=== PATIENT | female | born 1985 | race Caucasian/White ===

== ENCOUNTER 2018-05-09 17:33 | Outpatient (CLI) | payer BC | END 2018-05-09 17:34 | disposition home or self-care (01) | LOC: C.RADH 17:33 | DX: R06.02 Shortness of breath (principal) ==

== ENCOUNTER 2018-05-13 09:01 | Day surgery (SDC) | payer BC ==
[2018-05-10 11:51] VITALS: BMI 26.1
[2018-05-13 09:58] VITALS: O2SAT 100
[2018-05-13] MEDS ORDERED: Lidocaine/Epinephrine 1% 1:100000 10 ML IJ ONE ×2 (11:51→13:45)
[2018-05-13] MEDS ORDERED: Bupivacaine 0.25% 20 ML INJ IJ ONE (11:51)
[2018-05-13] MEDS ORDERED: HEPARIN-NS 5,000 UNITS/500 ML 5,000 UNIT/500 ML BAG IV ONE (11:51)
[2018-05-13] MEDS ORDERED: Propofol 10 mg/ml Inj (20 ML) ONE ×2 (12:03→13:02)
[2018-05-13] MEDS ORDERED: Midazolam 2 MG/2 ML VIAL ONE ×2 (12:05→13:02)
[2018-05-13] MEDS ORDERED: ceFAZolin 1 gm in NS 1 GM/100 ML BAG IVPB ONE ×2 (12:45→13:29)
[2018-05-13] MEDS ORDERED: HYDROmorphone 0.5 mg/0.5 ml ISec IVP PRN (13:13)
[2018-05-13] MEDS ORDERED: Sodium Chloride 0.9% 20 ML IV ONE (13:48)
--- NOTE | 2018-05-13 14:22 | PCM.SURG1 ---
Surgeon's Initial Post Op Note - Surgeon's Notes Surgeon: Dr. Fermin Commercial Leasing Agent: Dr. Abraham, PGY 1 Pre-Operative Diagnosis: anemia Operative Findings: see operative report Post-Operative Diagnosis: anemia Operation Performed: portacath insertion Specimen/Specimens Removed: none Estimated Blood Loss: EBL {In ML}: 10 Blood Products Given: N/A Drains Used: No Drains Post-Op Condition: Good Date of Surgery/Procedure: 05/13/18 Time of Surgery/Procedure: 13:00
[2018-05-13] MEDS ORDERED: Oxycodone/Acetaminophen 5/325 mg Tab PO PRN (14:27)
--- NOTE | 2018-05-13 15:19 | RAD ---
Date of service: 05/13/2018 HISTORY: s/p portacath insertion COMPARISON: Chest radiographs 05/09/2018. TECHNIQUE: 1 view obtained. FINDINGS: LUNGS: No active pulmonary disease. PLEURA: No significant pleural effusion identified, no pneumothorax apparent. CARDIOVASCULAR: No aortic atherosclerotic calcification present. Normal cardiac size. No pulmonary vascular congestion. Interval deployment of a right MediPort is identified by an apparent right internal jugular approach with the tip turning at the right atrium. OSSEOUS STRUCTURES: No significant abnormalities. VISUALIZED UPPER ABDOMEN: Surgical clips reiterated right upper quadrant abdomen. OTHER FINDINGS: None. IMPRESSION: No interval acute cardiopulmonary disease appreciated. Right MediPort deployment identified in the interval without pneumothorax.
[2018-05-13 15:45] VITALS: BP 126/72; PULSE 69; RESP 18; TEMP 97
--- NOTE | 2018-05-14 00:26 | OP ---
PROCEDURE DATE: 05/13/2018 PREOPERATIVE DIAGNOSES: 1. Chronic anemia. 2. Need for repeated infusion. 3. Dysfunctional uterine bleeding. POSTOPERATIVE DIAGNOSES: 1. Chronic anemia. 2. Need for repeated infusion. 3. Dysfunctional uterine bleeding. PROCEDURE DONE: 1. Right internal jugular Port-A-Cath insertion. 2. Ultrasound-guided venous access. 3. Intraoperative fluoroscopy. SURGEON: Neo Fermin MD INSURANCE BILLING SPECIALIST: Anahi, PGY-1 resident. ANESTHESIA: General endotracheal tube anesthesia. ESTIMATED BLOOD LOSS: Around 10 mL. DRAIN: None. PATHOLOGY: None. COMPLICATIONS: None. INTRAOPERATIVE FINDINGS: The patient had a patent right IJ on ultrasound. DESCRIPTION OF PROCEDURE: On intraoperative steps, this is a 32-year-old female who was diagnosed with chronic anemia, and the patient needed multiple transfusions for a week, and the patient also had a dysfunctional uterine bleeding and the patient was sent by folded cloth taper for Port-A-Cath insertion, because the patient has a very small vein and difficult venous access, and the patient was consented for the Port-A-Cath insertion, brought to the OR, placed supine on the operating table. After induction of the anesthesia, the neck and upper chest was prepped and draped in usual sterile fashion. The ultrasound-guided venous access was done. Guidewire was placed and intraoperative fluoroscopy confirmation was done. After that, infraclavicular right sided pouch was created. The catheter was removed from the pouch up to the right IJ insertion site, and the catheter was placed into the dilator sheath and catheter was connected to the port. The port was secured to the floor of the pouch. The port was accessed intraoperatively, and it was functioning very well. Intraoperative fluoroscopy confirmation was done and the tip of the catheter was in a proper position, and after that, the wound was closed in a multiple layer, the subcu with 2-0 Vicryl, skin with 4-0 Monocryl, and another 4-0 Monocryl at the neck incision site and the port was flushed with a heparin saline, as well as a straight heparin was injected into the port and after that, dry sterile dressing was applied. The patient tolerated the procedure well. Count of instrument and gauze was correct. There was no apparent complication. Neo Fermin MD [facility] # [id number]
--- NOTE | 2018-05-14 16:51 | RAD ---
PROCEDURE: HISTORY: As above COMPARISON: None TECHNIQUE: Total fluoroscopic time utilized during the procedure: 22.2 seconds ; 0.1 to 138 mGy cm 2 FINDINGS: Submitted images from the current procedure: 8 Please refer to the physician's notes performing the procedure. IMPRESSION: Less than 1 hour fluoroscopic time utilized during performance of the procedure
== END 2018-05-13 16:06 | disposition home or self-care (01) ==
LOC: C.SDS 09:01
PROVIDERS: ATTEND Surgery Surgical Critical Care
DX: D64.9 Anemia, unspecified (principal); N93.8 Other specified abnormal uterine and vaginal bleeding
CPT/HCPCS: 36556; 71045; C1788; J0690; J1644; J2001; J2250; J2405; J2704; J3010; J7040